=== PATIENT | male | born 2000 | race Caucasian/White ===

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

== ENCOUNTER 2018-08-01 05:32 | Emergency (ER) | payer OTHER, SELFPAY ==
[~2018-08-01] VITALS: Ht 177.8 cm; Wt 81.6 kg
[~2018-08-01 05:32] MED LIST: AMOX500C PO; BENZ100C PO; CIPR10DR LEFT EAR; FAMO10TA PO; GUAI-108 PO; NAPR-683 PO; ONDA4TAB10 SL
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
[2018-08-01] MEDS: IV NORMAL SALINE 1000ML BAG 1,000 ML IV SCH (05:51)
[2018-08-01] MEDS: MORPHINE SULFATE 4 MG/ML VIAL. IV/SQ PRN (05:52)
[2018-08-01] MEDS: ONDANSETRON PF 4 MG/2 ML VIAL. IV ONE (05:52)
[2018-08-01 05:53] LABS: BASO # 0.1 x10^3/uL (0.0-0.2); BASO % 1 % (0-3); EOS # 0.3 x10^3/uL (0.0-0.7); EOS % 3 % (0-3); HEMATOCRIT 49.4 % (39.0-53.0); HEMOGLOBIN 16.9 g/dL (13.0-17.5); LYMPH # 2.5 x10^3/uL (1.0-4.8); LYMPH % 19 % (24-48); MEAN CORPUSCULAR HEMOGLOBIN 29 pg (25-35); MEAN CORPUSCULAR HGB CONC 34 g/dL (31-37); MEAN CORPUSCULAR VOLUME 86 fL (79-100); MONO # 1.2 x10^3/uL (0.0-1.1); MONO % 9 % (0-9); NEUT # 8.8 x10^3uL (1.8-7.7); NEUT % 69 % (31-73); PLATELET COUNT 306 x10^3/uL (140-400); RED BLOOD COUNT 5.75 x10^6/uL (4.30-5.70); WHITE BLOOD COUNT 12.9 x10^3/uL (4.0-11.0)
[2018-08-01 06:02] LABS: CALCIUM 9.4 mg/dL (8.5-10.1); GFR 95.3; POTASSIUM 3.8 mmol/L (3.5-5.1)
[2018-08-01 06:11] LABS: ALBUMIN 4.5 g/dL (3.4-5.0); ALBUMIN/GLOBULIN RATIO 1.6 (1.0-1.7); TOTAL BILIRUBIN 0.7 mg/dL (0.2-1.0); TOTAL PROTEIN 7.3 g/dL (6.4-8.2)
[2018-08-01] MEDS ORDERED: CONTRAST GIVEN. MC PRN (06:15)
[2018-08-01] MEDS: IOHEXOL 300 MG/ML 100ML VIAL. IV ONE (06:20)
--- NOTE | 2018-08-01 06:41 | RAD ---
CT abdomen and pelvis with contrast. HISTORY: Right lower quadrant abdominal pain CT scan the abdomen pelvis was done using 75 mL Omnipaque 300 contrast. Lung bases are clear. There is no effusion. A liver lesion is not identified. There is no calcified gallstone in the gallbladder. Kidneys are normal in size and appearance. Spleen and adrenal glands are normal. Pancreas is normal. There is no bowel obstruction. Appendix is normal. There is no free fluid. There is not evidence of diverticulosis or diverticulitis. IMPRESSION: 1. No abdominal or pelvic mass or acute finding noted. 2. Normal appendix Electronically signed by: Jaren Giron MD (08/01/2018 6:38 AM) [facility]
[2018-08-01 06:58] LABS: BILIRUBIN,URINE NEGATIVE (NEG); CLARITY,URINE CLEAR; COLOR,URINE YELLOW; NITRITE,URINE NEGATIVE (NEG); PH,URINE 6.5; PROTEIN,URINE 30 mg/dL (NEG-TRACE); UROBILINOGEN,URINE 0.2 mg/dL (0.2 mg/dL)
[2018-08-01 07:09] VITALS: BP 115/74
[2018-08-01] MEDS ORDERED: NAPR-683 PO (07:13)
[2018-08-01] MEDS ORDERED: PROM25TA10 PO (07:13)
[2018-08-01 07:18] LABS: BACTERIA,URINE 0 /HPF (0-FEW); RBC,URINE 0 /HPF (0-2); SQUAMOUS EPITHELIAL CELL,UR OCC /LPF
== END 2018-08-01 07:27 | disposition home or self-care (01) ==
LOC: ER 05:32
DX: K52.89 Other specified noninfective gastroenteritis and colitis (principal); K21.9 Gastro-esophageal reflux disease without esophagitis; Z90.89 Acquired absence of other organs; Z96.22 Myringotomy tube(s) status
CPT/HCPCS: 36415; 74177; 80053; 81001; 83690; 85025; 87086; 96361; 96374; 96375; 99285; J2270; J2405; J7030; Q9967

== ENCOUNTER 2020-07-09 10:44 | Emergency (ER) | payer SELFPAY ==
[~2020-07-09] VITALS: Ht 177.8 cm; Wt 100.0 kg
[~2020-07-09 10:44] MED LIST changes: +PROM25TA10 PO
[2020-07-09 11:20] VITALS: BP 135/79
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
[2020-07-09] MEDS ORDERED: DEXAMETHASONE SOD PHOS 20 MG/5 ML VIAL. IV ONE (12:45)
[2020-07-09] MEDS ORDERED: diphenhydrAMINE 50 MG/ML VIAL IVP ONE (12:45)
[2020-07-09] MEDS ORDERED: IV NORMAL SALINE 1000ML BAG 1,000 ML IV SCH (12:45)
[2020-07-09] MEDS ORDERED: PROCHLORPERAZINE 10 MG/2 ML VIAL. IV ONE (12:45)
[2020-07-09] MEDS ORDERED: DEXAMETHASONE 4 MG TABLET PO ONE (13:30)
== END 2020-07-09 13:24 | disposition home or self-care (01) ==
LOC: ER 10:44
DX: G43.909 Migraine, unspecified, not intractable, without status migrainosus (principal); F17.210 Nicotine dependence, cigarettes, uncomplicated; Z87.820 Personal history of traumatic brain injury; Z91.030 Bee allergy status
CPT/HCPCS: 99283